=== PATIENT | male | born 1950 | race African-American/Black ===

== ENCOUNTER 2018-02-27 10:18 | Outpatient (CLI) | payer OTHER | END 2018-02-27 10:23 | disposition home or self-care (01) | LOC: LAB 10:18 | DX: M25.50 Pain in unspecified joint (principal); R51 Headache; R42 Dizziness and giddiness ==

== ENCOUNTER 2018-02-27 11:21 | Outpatient (CLI) | payer OTHER | END 2018-02-27 11:32 | disposition home or self-care (01) | LOC: RAD 11:21 | DX: M25.50 Pain in unspecified joint (principal); M25.561 Pain in right knee; M25.572 Pain in left ankle and joints of left foot; R51 Headache; R42 Dizziness and giddiness ==

== ENCOUNTER → 2018-02-27 | Outpatient (CLI) | payer OTHER ==
[~2018-02-27] MED LIST: ASA81 MG; CATAFLAM50 MG; FLEXERIL10 MG; FLEXERIL10 MG PO; NEURONTIN300 MG PO; TRICOR145 MG; TRICOR145 MG PO; [UNRECOGNIZED DRUG - OTHER]
== END | disposition home or self-care (01) ==
LOC: PPHC 08:59
DX: R20.0 Anesthesia of skin (principal); Z00.8 Encounter for other general examination

== ENCOUNTER → 2018-03-13 | Outpatient (CLI) | payer OTHER | END | disposition home or self-care (01) | LOC: PPHC 11:29 | DX: Z01.89 Encounter for other specified special examinations (principal) ==

== ENCOUNTER 2018-06-20 12:34 | Outpatient (CLI) | payer OTHER | END 2018-06-20 12:38 | disposition home or self-care (01) | LOC: RAD 12:34 | DX: M25.561 Pain in right knee (principal); M25.571 Pain in right ankle and joints of right foot ==

== ENCOUNTER → 2018-06-27 | Outpatient (CLI) | payer OTHER ==
[~2018-06-27] MED LIST changes: +VOLTAREN100 GM TOP
== END | disposition home or self-care (01) ==
LOC: LAB 07:54
DX: I10 Essential (primary) hypertension (principal); E78.4 Other hyperlipidemia

== ENCOUNTER 2018-07-03 08:35 | Outpatient (CLI) | payer OTHER ==
[~2018-07-03 08:35] MED LIST changes: -VOLTAREN100 GM TOP
[2018-07-03] MEDS ORDERED: VOLTAREN100 GM TOP (10:09)
== END 2018-07-03 08:39 | disposition home or self-care (01) ==
LOC: LAB 08:35
DX: E78.4 Other hyperlipidemia (principal); I10 Essential (primary) hypertension

== ENCOUNTER 2018-10-15 12:43 | Outpatient (CLI) | payer OTHER ==
[~2018-10-15 12:43] MED LIST changes: +GABAPENTIN300 MG PO; +VOLTAREN100 GM TOP
== END 2018-10-15 12:59 | disposition home or self-care (01) ==
LOC: LAB 12:43
DX: E78.2 Mixed hyperlipidemia (principal); Z13.1 Encounter for screening for diabetes mellitus; Z12.11 Encounter for screening for malignant neoplasm of colon; Z12.5 Encounter for screening for malignant neoplasm of prostate; R03.1 Nonspecific low blood-pressure reading

== ENCOUNTER 2018-10-16 12:29 | Outpatient (CLI) | payer OTHER | END 2018-10-16 12:38 | disposition home or self-care (01) | LOC: LAB 12:29 | DX: E78.2 Mixed hyperlipidemia (principal); Z13.1 Encounter for screening for diabetes mellitus; Z12.11 Encounter for screening for malignant neoplasm of colon; Z12.5 Encounter for screening for malignant neoplasm of prostate; R03.0 Elevated blood-pressure reading, without diagnosis of hypertension ==

== ENCOUNTER → 2018-10-24 | Outpatient (CLI) | payer OTHER | END | disposition home or self-care (01) | LOC: RAD 12:30 | DX: M25.572 Pain in left ankle and joints of left foot (principal) ==

== ENCOUNTER 2019-06-25 09:31 | Outpatient (CLI) | payer OTHER | END 2019-06-25 09:34 | disposition home or self-care (01) | LOC: LAB 09:31 | DX: E78.49 Other hyperlipidemia (principal) ==

== ENCOUNTER → 2019-07-10 | Outpatient (CLI) | payer OTHER | END | disposition home or self-care (01) | LOC: SONOGRAMA 11:54 | DX: M25.512 Pain in left shoulder (principal) ==

== ENCOUNTER 2019-07-16 09:39 | Outpatient (CLI) | payer OTHER | END 2019-07-16 15:00 | disposition home or self-care (01) | LOC: LAB 09:39 | DX: E78.2 Mixed hyperlipidemia (principal); E11.65 Type 2 diabetes mellitus with hyperglycemia; Z12.11 Encounter for screening for malignant neoplasm of colon; Z13.6 Encounter for screening for cardiovascular disorders; Z12.5 Encounter for screening for malignant neoplasm of prostate; I10 Essential (primary) hypertension ==